=== PATIENT | male | born 1955 | race African-American/Black ===

== ENCOUNTER 2019-09-19 18:55 | Emergency (ER) | payer OTHER ==
[~2019-09-19] VITALS: Ht 182.9 cm; Wt 81.8 kg
[2019-09-19 21:59] VITALS: BP 139/82
== END 2019-09-19 22:05 | disposition home or self-care (01) ==
LOC: EMS 18:57
DX: M21.371 Foot drop, right foot (principal); M79.2 Neuralgia and neuritis, unspecified; F17.210 Nicotine dependence, cigarettes, uncomplicated